=== PATIENT | female | born 2000 | race Caucasian/White ===

== ENCOUNTER 2020-07-15 12:56 | Emergency (ER) | payer SELFPAY ==
[2020-07-15] MEDS ORDERED: Tetracaine HCl 0.5% Ophth Soln 2 ML Bottle ONE (13:10)
[2020-07-15] MEDS ORDERED: Fluorescein Opthalmic Strip ONE (13:10)
== END 2020-07-15 13:36 | disposition home or self-care (01) ==
LOC: NAV ERS 12:56
DX: S05.02XA Injury of conjunctiva and corneal abrasion without foreign body, left eye, initial encounter (principal); S05.01XA Injury of conjunctiva and corneal abrasion without foreign body, right eye, initial encounter; G47.30 Sleep apnea, unspecified; X58.XXXA Exposure to other specified factors, initial encounter
CPT/HCPCS: 99283